=== PATIENT | male | born 1965 | race Caucasian/White ===

== ENCOUNTER 2020-06-03 16:28 | Emergency (ER) | payer MEDICARE, MEDICAID ==
[~2020-06-03] VITALS: Ht 177.8 cm; Wt 87.5 kg
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
--- NOTE | 2020-06-03 17:33 | NUR ---
pt in bed with no signs or symptoms of acute distress noted respirations even and unlabored. sw at bedside to assess.
--- NOTE | 2020-06-03 18:15 | NUR ---
pt in bed with no signs or symptoms of acute distress noted respirations even and unlabored
--- NOTE | 2020-06-03 18:51 | NUR ---
pt provided si diet tray, verbalizes appreciation for cares and concern. no signs or symptoms of acute distress noted respirations even and unlabored, in bed consuming offered meal tray with good appetite
[2020-06-03 19:21] LABS: BASOPHILS % (AUTO) 2 % (0-1); EOSINOPHILS % (AUTO) 1 % (1-7); LYMPHOCYTES % (AUTO) 31 % (22-44); MEAN CORPUSCULAR HEMOGLOBIN 31.2 pg (27.5-34.5); MEAN PLATELET VOLUME 8.6 fL (7.4-10.4); MONOCYTES % (AUTO) 11 % (2-9); NEUTROPHILS % (AUTO) 55 % (42-75); PLATELET COUNT 184 x10^3/uL (130-400); RED BLOOD COUNT 4.99 x10^6/uL (4.38-5.82); RED CELL DISTRIBUTION WIDTH 13.6 % (9.4-14.8)
[2020-06-03 19:24] LABS: MD NO
[2020-06-03 19:33] LABS: ALANINE AMINOTRANSFERASE 24 U/L (12-78); ALBUMIN 3.8 g/dL (3.4-5.0); ANION GAP 3 mmol/L (5-15); CALCIUM 8.9 mg/dL (8.5-10.1); CHLORIDE 110 mmol/L (98-107); SALICYLATE LEVEL 3.4 mg/dL (2.8-20.0)
[2020-06-03 19:35] LABS: CREATININE 0.91 mg/dL (0.7-1.3)
[2020-06-03 19:36] LABS: ALKALINE PHOSPHATASE 71 U/L (45-117); BILIRUBIN,TOTAL 0.1 mg/dL (0.2-1.0); TOTAL PROTEIN 6.7 g/dL (6.4-8.2)
--- NOTE | 2020-06-03 19:59 | NUR ---
pt able to consume 100% of offered meal tray verbalizes appreciation for cares and concern. pt denies need or discomfort at this time, calm and cooperative in bed with no signs or symptoms of acute distress noted respirations even and unlabored.
[2020-06-03 21:00] LABS: AMPHETAMINE SCREEN, URINE Negative (Negative); BARBITURATE SCREEN, URINE Negative (Negative); BENZODIAZEPINE SCREEN, URINE Negative (Negative); CANNABINOID SCREEN, URINE Negative (Negative); COCAINE SCREEN, URINE Negative (Negative); METHADONE SCREEN, URINE Negative (Negative); OPIATE SCREEN, URINE Negative (Negative)
[2020-06-03 21:41] VITALS: BP 115/66
[2020-06-03] MEDS ORDERED: CITA20TA9 PO (22:31)
[2020-06-03] MEDS ORDERED: OXYC-307 PO (22:31)
[2020-06-03] MEDS ORDERED: DEXT20TA8 PO (22:31)
[2020-06-03] MEDS ORDERED: GABA600T7 PO (22:31)
== END 2020-06-03 22:12 | disposition other institution (70) ==
LOC: ED 18:25
DX: R45.851 Suicidal ideations (principal); Z20.822 Contact with and (suspected) exposure to COVID-19; Z91.19 Patient's noncompliance with other medical treatment and regimen; F43.10 Post-traumatic stress disorder, unspecified
CPT/HCPCS: 36415; 80053; 80143; 80179; 80307; 80320; 85025; 87426; 99285; G0480

== ENCOUNTER 2020-06-03 20:45 | Inpatient (IN) | payer MEDICARE, MEDICAID ==
[~2020-06-03] VITALS: Ht 177.8 cm; Wt 87.6 kg
[2020-06-03] MEDS ORDERED: BISACODYL 10 MG SUPP PR PRN (22:00)
[2020-06-03] MEDS ORDERED: POLYETHYLENE GLYCOL 17 GM PACKET PO PRN (22:00)
[2020-06-03] MEDS ORDERED: ONDANSETRON ODT 4 MG PO PRN (22:00)
[2020-06-03] MEDS ORDERED: DOCUSATE 100 MG CAPSULE PO PRN (22:00)
[2020-06-03] MEDS ORDERED: OXYC-307 PO (22:31)
[2020-06-03] MEDS ORDERED: GABA600T7 PO (22:31)
[2020-06-03] MEDS ORDERED: DEXT20TA8 PO (22:31)
[2020-06-03] MEDS ORDERED: CITA20TA9 PO (22:31)
[2020-06-03 22:33] VITALS: BP 120/80
[2020-06-03] MEDS: BUTALB/APAP/CAFFEINE 50MG/325MG/40MG PO SCH (22:40)
[2020-06-03 22:47] LABS: MICROSCOPIC NOT IND
[2020-06-04] MEDS: IBUPROFEN 200 MG TABLET PO PRN ×4 (05:43→21:31)
[2020-06-04 06:00] LABS: CHOL/HDL RATIO 3.3; FREE T4 (FREE THYROXINE) 0.67 ng/dL (0.76-1.46); LDL/HDL RATIO 1.8 (0.5-3.0)
[2020-06-04 07:17] VITALS: BP 128/83
[2020-06-04] MEDS: GABAPENTIN 300 MG CAPSULE PO SCH ×3 (08:39→20:00)
[2020-06-04] MEDS: CITALOPRAM 20 MG TABLET PO SCH (08:39)
[2020-06-04] MEDS: BUTALB/APAP/CAFFEINE 50MG/325MG/40MG PO SCH ×2 (08:40→20:00)
[2020-06-04] MEDS: NICOTINE 14MG/24 HR PATCH.TD24 TD SCH (08:40)
[2020-06-04] MEDS ORDERED: FLU VACC QS2020-21(6MOS UP)/PF 60MCG/0.5 ML SYR IM-VACC ONE (11:00)
[2020-06-04] MEDS ORDERED: ALBUTEROL HFA 90 MCG/SPRAY INH PRN (14:30)
[2020-06-04] MEDS ORDERED: BUTALB/APAP/CAFFEINE 50MG/325MG/40MG PO PRN (14:30)
[2020-06-04 15:44] LABS: TROPONIN I < 0.015 ng/mL (0.000-0.045)
[2020-06-04 19:38] VITALS: BP 119/68
[2020-06-04] MEDS: GUAIFENESIN ER 600 MG TABLET PO SCH (20:00)
[2020-06-05 07:24] VITALS: BP 124/83
[2020-06-05 07:47] LABS: TROPONIN I < 0.015 ng/mL (0.000-0.045)
[2020-06-05] MEDS: BUTALB/APAP/CAFFEINE 50MG/325MG/40MG PO SCH (08:40)
[2020-06-05] MEDS: GUAIFENESIN ER 600 MG TABLET PO SCH ×2 (08:40→20:59)
[2020-06-05] MEDS: CITALOPRAM 20 MG TABLET PO SCH (08:40)
[2020-06-05] MEDS: GABAPENTIN 300 MG CAPSULE PO SCH ×3 (08:40→20:59)
[2020-06-05] MEDS: NICOTINE 14MG/24 HR PATCH.TD24 TD SCH (08:42)
[2020-06-05] MEDS: IBUPROFEN 200 MG TABLET PO PRN (08:46)
[2020-06-05] MEDS ORDERED: FLUTICASONE/VILANTEROL 200-25MCG/INH INH SCH (09:00)
[2020-06-05] MEDS ORDERED: ALBUTEROL-IPRATROPIUM MDI INH INH SCH (10:30)
[2020-06-05] MEDS: IBUPROFEN 800 MG TABLET PO PRN ×2 (10:41→20:59)
[2020-06-05] MEDS: ALBUTEROL-IPRATROPIUM MDI INH INH SCH ×2 (14:10→20:00)
[2020-06-05] MEDS ORDERED: TOPIRAMATE 25 MG TABLET ONE (14:25)
[2020-06-05] MEDS ORDERED: BUTALB/APAP/CAFFEINE 50MG/325MG/40MG PO PRN (14:30)
[2020-06-05] MEDS: TOPIRAMATE 25 MG TABLET PO PRN (14:41)
[2020-06-05 19:34] VITALS: BP 123/74
[2020-06-05] MEDS: ATORVASTATIN 20 MG TABLET PO SCH (20:59)
[2020-06-06] MEDS: IBUPROFEN 800 MG TABLET PO PRN ×2 (06:09→14:15)
[2020-06-06 08:00] VITALS: BP 110/70
[2020-06-06] MEDS: ALBUTEROL-IPRATROPIUM MDI INH INH SCH ×5 (08:43→19:15)
[2020-06-06] MEDS: CITALOPRAM 20 MG TABLET PO SCH (08:44)
[2020-06-06] MEDS: NICOTINE 14MG/24 HR PATCH.TD24 TD SCH (08:44)
[2020-06-06] MEDS: TOPIRAMATE 25 MG TABLET PO PRN ×2 (08:44→20:45)
[2020-06-06] MEDS: GUAIFENESIN ER 600 MG TABLET PO SCH ×2 (08:44→20:54)
[2020-06-06] MEDS: GABAPENTIN 300 MG CAPSULE PO SCH ×3 (08:45→20:44)
[2020-06-06] MEDS: BUTALB/APAP/CAFFEINE 50MG/325MG/40MG PO PRN (15:42)
[2020-06-06] MEDS ORDERED: AMPHETAMINE SALTS 20 MG PO SCH (17:00)
[2020-06-06 19:21] VITALS: BP 127/88
[2020-06-06] MEDS: ATORVASTATIN 20 MG TABLET PO SCH (20:45)
[2020-06-06] MEDS: AMPHETAMINE SALTS 20 MG PO SCH (20:46)
[2020-06-07] MEDS: BUTALB/APAP/CAFFEINE 50MG/325MG/40MG PO PRN ×3 (02:45→14:22)
[2020-06-07] MEDS: IBUPROFEN 800 MG TABLET PO PRN ×3 (04:18→20:02)
[2020-06-07] MEDS: ALBUTEROL-IPRATROPIUM MDI INH INH SCH ×4 (06:55→18:45)
[2020-06-07 07:36] VITALS: BP 123/77
[2020-06-07] MEDS: GABAPENTIN 300 MG CAPSULE PO SCH ×3 (09:04→20:02)
[2020-06-07] MEDS: GUAIFENESIN ER 600 MG TABLET PO SCH ×2 (09:04→20:02)
[2020-06-07] MEDS: TOPIRAMATE 25 MG TABLET PO PRN ×2 (09:05→20:02)
[2020-06-07] MEDS: CITALOPRAM 20 MG TABLET PO SCH (09:05)
[2020-06-07] MEDS: NICOTINE 14MG/24 HR PATCH.TD24 TD SCH (09:06)
[2020-06-07] MEDS: AMPHETAMINE SALTS 20 MG PO SCH ×3 (09:37→17:17)
[2020-06-07] MEDS ORDERED: AMPHETAMINE SALTS 20 MG PO SCH (13:00)
[2020-06-07] MEDS: ACETAMINOPHEN 325 MG TABLET PO PRN (14:22)
[2020-06-07 19:33] VITALS: BP 136/81
[2020-06-07] MEDS: ATORVASTATIN 20 MG TABLET PO SCH (20:02)
[2020-06-08] MEDS: BUTALB/APAP/CAFFEINE 50MG/325MG/40MG PO PRN ×3 (01:01→20:07)
[2020-06-08] MEDS: ACETAMINOPHEN 325 MG TABLET PO PRN ×2 (02:32→17:31)
[2020-06-08] MEDS: IBUPROFEN 800 MG TABLET PO PRN ×3 (04:58→20:07)
[2020-06-08 07:20] VITALS: BP 115/74
[2020-06-08] MEDS: ALBUTEROL-IPRATROPIUM MDI INH INH SCH ×4 (07:40→20:20)
[2020-06-08] MEDS: GUAIFENESIN ER 600 MG TABLET PO SCH ×2 (08:44→20:02)
[2020-06-08] MEDS: NICOTINE 14MG/24 HR PATCH.TD24 TD SCH (08:44)
[2020-06-08] MEDS: AMPHETAMINE SALTS 20 MG PO SCH ×3 (08:44→17:31)
[2020-06-08] MEDS: CITALOPRAM 20 MG TABLET PO SCH (08:44)
[2020-06-08] MEDS: GABAPENTIN 300 MG CAPSULE PO SCH ×3 (08:44→20:02)
[2020-06-08] MEDS: TOPIRAMATE 25 MG TABLET PO PRN (11:15)
[2020-06-08] MEDS: SUMATRIPTAN 100 MG TABLET PO PRN (14:30)
[2020-06-08 18:29] VITALS: BP 119/78
[2020-06-08] MEDS: ATORVASTATIN 20 MG TABLET PO SCH (20:02)
[2020-06-09] MEDS: BUTALB/APAP/CAFFEINE 50MG/325MG/40MG PO PRN ×2 (06:05→16:13)
[2020-06-09] MEDS: IBUPROFEN 800 MG TABLET PO PRN ×2 (06:05→14:20)
[2020-06-09] MEDS: ALBUTEROL-IPRATROPIUM MDI INH INH SCH (07:10)
[2020-06-09 07:36] VITALS: BP 130/87
[2020-06-09] MEDS: SUMATRIPTAN 100 MG TABLET PO PRN (07:57)
[2020-06-09] MEDS: GUAIFENESIN ER 600 MG TABLET PO SCH ×2 (07:57→21:14)
[2020-06-09] MEDS: GABAPENTIN 300 MG CAPSULE PO SCH ×3 (07:57→21:15)
[2020-06-09] MEDS: CITALOPRAM 20 MG TABLET PO SCH (07:57)
[2020-06-09] MEDS: NICOTINE 14MG/24 HR PATCH.TD24 TD SCH (07:58)
[2020-06-09] MEDS: AMPHETAMINE SALTS 20 MG PO SCH ×3 (08:19→17:01)
[2020-06-09] MEDS: TOPIRAMATE 25 MG TABLET PO PRN (14:20)
[2020-06-09 19:38] VITALS: BP 122/77
[2020-06-09] MEDS: ATORVASTATIN 20 MG TABLET PO SCH (21:15)
[2020-06-10] MEDS: IBUPROFEN 800 MG TABLET PO PRN ×2 (01:56→14:13)
[2020-06-10] MEDS: BUTALB/APAP/CAFFEINE 50MG/325MG/40MG PO PRN ×2 (05:35→20:15)
[2020-06-10 07:09] VITALS: BP 117/74
[2020-06-10] MEDS: AMPHETAMINE SALTS 20 MG PO SCH ×3 (08:09→17:02)
[2020-06-10] MEDS: GUAIFENESIN ER 600 MG TABLET PO SCH ×2 (08:10→20:15)
[2020-06-10] MEDS: GABAPENTIN 300 MG CAPSULE PO SCH ×3 (08:10→20:15)
[2020-06-10] MEDS: CITALOPRAM 20 MG TABLET PO SCH (08:10)
[2020-06-10] MEDS: NICOTINE 14MG/24 HR PATCH.TD24 TD SCH (08:10)
[2020-06-10] MEDS: TOPIRAMATE 25 MG TABLET PO PRN ×2 (11:49→20:15)
[2020-06-10] MEDS: SUMATRIPTAN 100 MG TABLET PO PRN (14:13)
[2020-06-10 19:29] VITALS: BP 125/81
[2020-06-10] MEDS: ATORVASTATIN 20 MG TABLET PO SCH (20:15)
[2020-06-11 07:42] VITALS: BP 114/68
[2020-06-11] MEDS: GUAIFENESIN ER 600 MG TABLET PO SCH ×2 (08:24→20:07)
[2020-06-11] MEDS: NICOTINE 14MG/24 HR PATCH.TD24 TD SCH (08:24)
[2020-06-11] MEDS: AMPHETAMINE SALTS 20 MG PO SCH ×3 (08:24→17:09)
[2020-06-11] MEDS: CITALOPRAM 20 MG TABLET PO SCH (08:24)
[2020-06-11] MEDS: IBUPROFEN 800 MG TABLET PO PRN ×2 (08:24→15:58)
[2020-06-11] MEDS: GABAPENTIN 300 MG CAPSULE PO SCH ×3 (08:24→20:07)
[2020-06-11] MEDS: SUMATRIPTAN 100 MG TABLET PO PRN (09:08)
[2020-06-11] MEDS: ACETAMINOPHEN 325 MG TABLET PO PRN (13:48)
[2020-06-11] MEDS: BUTALB/APAP/CAFFEINE 50MG/325MG/40MG PO PRN (13:48)
[2020-06-11] MEDS: ATORVASTATIN 20 MG TABLET PO SCH (20:07)
[2020-06-11 22:00] VITALS: BP 126/81
[2020-06-12] MEDS: IBUPROFEN 800 MG TABLET PO PRN (05:36)
[2020-06-12] MEDS: BUTALB/APAP/CAFFEINE 50MG/325MG/40MG PO PRN (05:36)
[2020-06-12 07:55] VITALS: BP 111/74
[2020-06-12] MEDS: AMPHETAMINE SALTS 20 MG PO SCH ×2 (08:00→12:50)
[2020-06-12] MEDS: GABAPENTIN 300 MG CAPSULE PO SCH (08:15)
[2020-06-12] MEDS: GUAIFENESIN ER 600 MG TABLET PO SCH (08:16)
[2020-06-12] MEDS: CITALOPRAM 20 MG TABLET PO SCH (08:16)
[2020-06-12] MEDS: NICOTINE 14MG/24 HR PATCH.TD24 TD SCH (09:06)
[2020-06-12] MEDS ORDERED: NICO-486 TD (13:00)
[2020-06-12] MEDS ORDERED: CITA20TA9 PO (13:00)
[2020-06-12] MEDS ORDERED: ATOR20TA37 PO (13:00)
[2020-06-12] MEDS ORDERED: TOPI25TA32 PO (13:00)
[2020-06-12] MEDS ORDERED: ALBU18HF INH (13:00)
== END 2020-06-12 13:40 | disposition home or self-care (01) | DRG 885 ==
LOC: 3E 22:09
PROVIDERS: ADMIT Psychiatry & Neurology Psychosomatic Medicine; ATTEND Psychiatry & Neurology Psychosomatic Medicine
DX: F31.30 Bipolar disorder, current episode depressed, mild or moderate severity, unspecified (principal); R45.851 Suicidal ideations; F11.20 Opioid dependence, uncomplicated; F15.20 Other stimulant dependence, uncomplicated; J44.1 Chronic obstructive pulmonary disease with (acute) exacerbation; Z88.0 Allergy status to penicillin; E78.5 Hyperlipidemia, unspecified; F12.10 Cannabis abuse, uncomplicated; F43.10 Post-traumatic stress disorder, unspecified; F98.8 Other specified behavioral and emotional disorders with onset usually occurring in childhood and adolescence; G43.909 Migraine, unspecified, not intractable, without status migrainosus; G89.29 Other chronic pain; K21.9 Gastro-esophageal reflux disease without esophagitis; Z79.899 Other long term (current) drug therapy; Z91.19 Patient's noncompliance with other medical treatment and regimen
CPT/HCPCS: 36415; 71045; 80061; 81003; 82607; 84439; 84443; 84484; 90686; 93005; 94640; J7509